=== PATIENT | female | born 1955 | race Caucasian/White ===

== ENCOUNTER 2017-02-01 04:08 | Inpatient (IN) | payer MEDICAID, OTHER ==
[~2017-02-01] VITALS: Ht 157.5 cm; Wt 119.3 kg
[2017-02-01] MEDS ORDERED: CLINDAMYCIN 900MG IV 50 ML IV ONE ×2 (05:00→10:00)
[2017-02-01] MEDS ORDERED: IPRATROPIUM BROM 0.5 MG/2.5ML INH SOL NEB ONE ×2 (05:00→10:00)
[2017-02-01] MEDS ORDERED: methylPREDNISolone SOD SUCC 125 MG/2 ML VL IV ONE ×2 (05:00→10:00)
[2017-02-01] MEDS ORDERED: ALBUTEROL SULF 2.5 MG/0.5ML(0.5%) NEB SOLN NEB ONE ×2 (05:00→10:00)
[2017-02-01 05:02] LABS: Basophils # (auto) 0 uL; Basophils % (auto) 0.3 % (0.0-2.0); Eosinophils # (auto) 0.3 uL; Eosinophils % (auto) 4.2 % (0.0-7.0); Hematocrit 42.1 % (36.0-46.0); Lymphocytes % (auto) 12.1 % (10.0-50.0); Mean Corpuscular Hemoglobin 29.7 pg (28.0-32.0); Mean Corpuscular Hgb Conc. 33.3 g/dL (32.0-36.0); Mean Corpuscular Volume 89.1 fL (80.0-100.0); Mean Platelet Volume 7.9 fL (7.4-10.4); Monocytes # (auto) 0.8 uL; Neutrophils # (auto) 6.1 uL; Neutrophils % (auto) 73.4 % (37.0-80.0); Platelet Count (auto) 314 10^3/uL (140-450); Red Cell Distribution Width 15.4 % (11.6-16.0); White Blood Cell 8.3 10^3/uL (4.4-10.8)
[2017-02-01 05:18] LABS: INR 0.96 (0.9-1.15); Partial Thromboplastin Time 27.6 sec (22.64-33.71); Prothrombin Time 10.4 sec (9.37-12.3)
[2017-02-01 05:22] LABS: Albumin 2.9 g/dL (3.4-5.0); BUN/Creatinine Ratio 11.7; Bilirubin, Total 0.7 mg/dL (0.2-1.0); Calcium 8.3 mg/dL (8.5-10.1); Potassium 3.6 mmol/L (3.5-5.1); Total Protein 8.3 g/dL (6.4-8.2)
[2017-02-01 05:27] LABS: B-Type Natriuretic Peptide 28.63 pg/mL (0-100); Magnesium 2.3 mg/dL (1.6-2.6)
[2017-02-01 05:28] LABS: Temperature: 22.1 C (20.0-25.0)
[2017-02-01] MEDS ORDERED: ONDANSETRON HCL 4 MG/2 ML VIAL IV PRN (07:15)
[2017-02-01] MEDS ORDERED: ACETAMINOPHEN 325 MG TAB PO PRN (07:15)
[2017-02-01] MEDS ORDERED: NITROGLYCERIN 0.4 MG SL TAB SL PRN (07:15)
[2017-02-01] MEDS ORDERED: TEMAZEPAM 15 MG CAP PO PRN (07:15)
[2017-02-01] MEDS ORDERED: MORPHINE SULF INJ 2 MG/ML SYRINGE 1ML IV PRN (07:15)
[2017-02-01] MEDS: SODIUM CHLORIDE 0.9% 1,000 ML IV SCH ×3 (08:48→23:55)
[2017-02-01] MEDS ORDERED: PIPERACILLIN-TAZOB 3.375GM 100 ML IV ONE (10:00)
[2017-02-01] MEDS ORDERED: ENOXAPARIN SOD 30 MG/0.3 ML SYRINGE SC SCH (10:00)
[2017-02-01] MEDS: ENOXAPARIN SOD 40 MG/0.4 ML SYRINGE SC SCH (10:30)
[2017-02-01] MEDS: FAMOTIDINE 20 MG TAB PO SCH ×2 (10:30→20:23)
[2017-02-01] MEDS: MULTIPLE VITAMIN TAB PO SCH (10:30)
[2017-02-01] MEDS: ASCORBIC ACID 500 MG TAB PO SCH ×2 (10:30→20:23)
[2017-02-01] MEDS: ZINC SULFATE 220 MG CAP PO SCH (10:30)
[2017-02-01] MEDS ORDERED: CLINDAMYCIN 900MG IV 50 ML IV SCH ×2 (13:00)
[2017-02-01 16:03] VITALS: BP 127/65
[2017-02-01 16:16] VITALS: BP 179/103
[2017-02-01] MEDS ORDERED: NOR5T PO (16:45)
[2017-02-01] MEDS: CLINDAMYCIN 900MG IV 50 ML IV SCH (17:20)
[2017-02-01 20:00] VITALS: BP 145/89
[2017-02-01] MEDS: MORPHINE SULF INJ 2 MG/ML SYRINGE 1ML IV PRN (21:49)
[2017-02-01 22:38] VITALS: BP 145/89
[2017-02-01] MEDS: ALBUTEROL SULF 2.5 MG/0.5ML(0.5%) NEB SOLN NEB SCH (23:06)
[2017-02-01] MEDS: IPRATROPIUM BROM 0.5 MG/2.5ML INH SOL NEB SCH (23:07)
[2017-02-02] MEDS: CLINDAMYCIN 900MG IV 50 ML IV SCH ×3 (03:33→17:31)
[2017-02-02 05:03] VITALS: BP 156/74
[2017-02-02 06:21] LABS: Basophils # (auto) 0 uL; Eosinophils # (auto) 0 uL; Hematocrit 39.6 % (36.0-46.0); Hemoglobin 13.3 g/dL (12.2-16.2); Lymphocytes # (auto) 0.8 uL; Lymphocytes % (auto) 6.8 % (10.0-50.0); Mean Corpuscular Hgb Conc. 33.6 g/dL (32.0-36.0); Mean Corpuscular Volume 89.5 fL (80.0-100.0); Mean Platelet Volume 8.4 fL (7.4-10.4); Monocytes # (auto) 0.7 uL; Monocytes % (auto) 6.3 % (0.0-12.0); Neutrophils # (auto) 9.9 uL; Neutrophils % (auto) 86.9 % (37.0-80.0); Platelet Count (auto) 318 10^3/uL (140-450); Red Cell Distribution Width 14.3 % (11.6-16.0); SUSPECT VIEW TRANSMISSION; White Blood Cell 11.4 10^3/uL (4.4-10.8)
[2017-02-02 06:42] LABS: Albumin 2.7 g/dL (3.4-5.0); Potassium 4.1 mmol/L (3.5-5.1)
[2017-02-02 06:44] LABS: BUN/Creatinine Ratio 13.9; Calcium 8.5 mg/dL (8.5-10.1)
[2017-02-02 06:47] LABS: Bilirubin, Total 0.3 mg/dL (0.2-1.0); Total Protein 7.6 g/dL (6.4-8.2)
[2017-02-02] MEDS: SODIUM CHLORIDE 0.9% 1,000 ML IV SCH ×2 (08:14→16:34)
[2017-02-02 09:30] VITALS: BP 113/51
[2017-02-02] MEDS: ALBUTEROL SULF 2.5 MG/0.5ML(0.5%) NEB SOLN NEB SCH ×2 (10:24→20:04)
[2017-02-02] MEDS: IPRATROPIUM BROM 0.5 MG/2.5ML INH SOL NEB SCH ×2 (10:24→20:04)
[2017-02-02] MEDS: ENOXAPARIN SOD 40 MG/0.4 ML SYRINGE SC SCH (10:35)
[2017-02-02] MEDS: ZINC SULFATE 220 MG CAP PO SCH (10:36)
[2017-02-02] MEDS: FAMOTIDINE 20 MG TAB PO SCH ×2 (10:36→20:46)
[2017-02-02] MEDS: ASCORBIC ACID 500 MG TAB PO SCH ×2 (10:36→20:46)
[2017-02-02] MEDS: MULTIPLE VITAMIN TAB PO SCH (10:36)
[2017-02-02] MEDS ORDERED: LORazepam 0.5 MG TAB PO PRN (12:30)
[2017-02-02 13:30] VITALS: BP 119/59
[2017-02-02] MEDS ORDERED: IPRATROPIUM BROM 0.5 MG/2.5ML INH SOL NEB ONE (13:30)
[2017-02-02] MEDS ORDERED: ALBUTEROL SULF 2.5 MG/0.5ML(0.5%) NEB SOLN NEB ONE (13:30)
[2017-02-02] MEDS: BOOST PLUS 8 ounce PO SCH ×2 (18:00→20:48)
[2017-02-02 18:10] VITALS: BP 117/57
[2017-02-02 20:00] VITALS: BP 121/72
[2017-02-02] MEDS: MORPHINE SULF INJ 2 MG/ML SYRINGE 1ML IV PRN (20:47)
[2017-02-02 21:40] VITALS: BP 121/72
[2017-02-03] MEDS: CLINDAMYCIN 900MG IV 50 ML IV SCH ×3 (01:41→17:32)
[2017-02-03] MEDS: SODIUM CHLORIDE 0.9% 1,000 ML IV SCH ×3 (01:42→17:34)
[2017-02-03 05:26] VITALS: BP 149/90
[2017-02-03] MEDS: ALBUTEROL SULF 2.5 MG/0.5ML(0.5%) NEB SOLN NEB SCH ×5 (05:58→22:00)
[2017-02-03] MEDS: BOOST PLUS 8 ounce PO SCH ×4 (06:00→20:22)
[2017-02-03 06:14] LABS: Basophils # (auto) 0 uL; Basophils % (auto) 0.2 % (0.0-2.0); Eosinophils # (auto) 0.1 uL; Eosinophils % (auto) 1.3 % (0.0-7.0); Hematocrit 39.3 % (36.0-46.0); Hemoglobin 13.2 g/dL (12.2-16.2); Lymphocytes # (auto) 1.2 uL; Lymphocytes % (auto) 12.4 % (10.0-50.0); Mean Corpuscular Hemoglobin 30.4 pg (28.0-32.0); Mean Corpuscular Hgb Conc. 33.5 g/dL (32.0-36.0); Mean Corpuscular Volume 90.8 fL (80.0-100.0); Mean Platelet Volume 8.1 fL (7.4-10.4); Monocytes # (auto) 0.8 uL; Monocytes % (auto) 8.4 % (0.0-12.0); Neutrophils # (auto) 7.3 uL; Neutrophils % (auto) 77.7 % (37.0-80.0); Platelet Count (auto) 337 10^3/uL (140-450); Red Cell Distribution Width 15.3 % (11.6-16.0); White Blood Cell 9.4 10^3/uL (4.4-10.8)
[2017-02-03 06:38] LABS: Albumin 2.7 g/dL (3.4-5.0); BUN/Creatinine Ratio 20.5; Bilirubin, Total 0.4 mg/dL (0.2-1.0); Calcium 8.6 mg/dL (8.5-10.1); Total Protein 7.7 g/dL (6.4-8.2)
[2017-02-03 09:00] VITALS: BP 123/66
[2017-02-03] MEDS: ZINC SULFATE 220 MG CAP PO SCH (10:55)
[2017-02-03] MEDS: ASCORBIC ACID 500 MG TAB PO SCH ×2 (10:55→20:22)
[2017-02-03] MEDS: MULTIPLE VITAMIN TAB PO SCH (10:55)
[2017-02-03] MEDS: FAMOTIDINE 20 MG TAB PO SCH ×2 (10:55→20:22)
[2017-02-03] MEDS: ENOXAPARIN SOD 40 MG/0.4 ML SYRINGE SC SCH (10:56)
[2017-02-03] MEDS: IPRATROPIUM BROM 0.5 MG/2.5ML INH SOL NEB SCH ×3 (12:02→22:00)
[2017-02-03 13:00] VITALS: BP 132/74
[2017-02-03] MEDS ORDERED: LEVOFLOXACIN 500MG 100 ML IV ONE (14:45)
[2017-02-03 18:23] VITALS: BP 117/72
[2017-02-03 20:00] VITALS: BP 126/77
[2017-02-03 22:00] VITALS: BP 118/69
[2017-02-04] VITALS (7 sets, daily range): BP systolic 115–126; BP diastolic 53–89
[2017-02-04] MEDS: IPRATROPIUM BROM 0.5 MG/2.5ML INH SOL NEB SCH ×6 (00:44→22:00)
[2017-02-04] MEDS: ALBUTEROL SULF 2.5 MG/0.5ML(0.5%) NEB SOLN NEB SCH ×6 (00:44→22:00)
[2017-02-04] MEDS: SODIUM CHLORIDE 0.9% 1,000 ML IV SCH ×2 (00:56→10:14)
[2017-02-04] MEDS: CLINDAMYCIN 900MG IV 50 ML IV SCH ×3 (00:56→17:03)
[2017-02-04] MEDS: BOOST PLUS 8 ounce PO SCH ×4 (06:00→22:00)
[2017-02-04 06:09] LABS: Basophils # (auto) 0 uL; Basophils % (auto) 0.3 % (0.0-2.0); Eosinophils # (auto) 0.2 uL; Eosinophils % (auto) 3.1 % (0.0-7.0); Hematocrit 40.2 % (36.0-46.0); Hemoglobin 13.7 g/dL (12.2-16.2); Lymphocytes # (auto) 1.2 uL; Lymphocytes % (auto) 16.1 % (10.0-50.0); Mean Corpuscular Hemoglobin 30.4 pg (28.0-32.0); Mean Corpuscular Hgb Conc. 34.1 g/dL (32.0-36.0); Mean Corpuscular Volume 89.2 fL (80.0-100.0); Mean Platelet Volume 7.8 fL (7.4-10.4); Monocytes # (auto) 0.7 uL; Monocytes % (auto) 10.1 % (0.0-12.0); Neutrophils # (auto) 5.2 uL; Neutrophils % (auto) 70.4 % (37.0-80.0); Platelet Count (auto) 332 10^3/uL (140-450); Red Cell Distribution Width 15.4 % (11.6-16.0); White Blood Cell 7.4 10^3/uL (4.4-10.8)
[2017-02-04 06:30] LABS: Albumin 2.6 g/dL (3.4-5.0); BUN/Creatinine Ratio 18.1; Calcium 8.3 mg/dL (8.5-10.1); Potassium 4.9 mmol/L (3.5-5.1)
[2017-02-04 06:32] LABS: Bilirubin, Total 0.4 mg/dL (0.2-1.0); Total Protein 7.6 g/dL (6.4-8.2)
[2017-02-04] MEDS ORDERED: LEVOFLOXACIN 500MG 100 ML IV SCH (10:00)
[2017-02-04] MEDS: ZINC SULFATE 220 MG CAP PO SCH (10:18)
[2017-02-04] MEDS: MULTIPLE VITAMIN TAB PO SCH (10:18)
[2017-02-04] MEDS: FAMOTIDINE 20 MG TAB PO SCH ×2 (10:18→21:39)
[2017-02-04] MEDS: ASCORBIC ACID 500 MG TAB PO SCH ×2 (10:18→21:38)
[2017-02-04] MEDS: ENOXAPARIN SOD 40 MG/0.4 ML SYRINGE SC SCH (10:18)
[2017-02-04] MEDS ORDERED: diphenhdrAMINE HCL 25 MG CAP PO ONE ×2 (13:40→13:45)
[2017-02-04 15:24] LABS: Allen Test Yes; Base Excess 4.4 mmol/L (-2.0-2.0); Blood 02Sat 82.7 % (96-100); Blood COHb 0.9 % (0.5-1.5); Blood MetHb 0.3 % (0.0-1.5); HCO3 29.6 mmol/L (22-26.0); HHb 17.1 % (0.0-5.0); MODE ROOM AIR; O2Hb 81.7 % (94.0-97.0); PCO2(T) 46.4 mmHg (35.0-45.0); PO2(T) 48.3 mmHg (80.0-100.0); Sample Type Arterial
[2017-02-04] MEDS ORDERED: IOHEXOL 350 MG/ML 100ML IJ ONE (16:11)
[2017-02-04] MEDS: ENOXAPARIN SOD 120 MG/0.8 ML SYRINGE SC SCH (21:38)
[2017-02-04] MEDS ORDERED: WARFARIN SODIUM 2.5 MG TAB PO ONE (21:45)
[2017-02-05] MEDS: CLINDAMYCIN 900MG IV 50 ML IV SCH ×2 (00:45→09:18)
[2017-02-05] MEDS: IPRATROPIUM BROM 0.5 MG/2.5ML INH SOL NEB SCH ×4 (01:54→14:30)
[2017-02-05] MEDS: ALBUTEROL SULF 2.5 MG/0.5ML(0.5%) NEB SOLN NEB SCH ×4 (01:54→14:30)
[2017-02-05 05:00] VITALS: BP 159/87
[2017-02-05] MEDS: BOOST PLUS 8 ounce PO SCH (06:00)
[2017-02-05 06:35] LABS: Basophils # (auto) 0 uL; Basophils % (auto) 0.4 % (0.0-2.0); Eosinophils # (auto) 0.3 uL; Eosinophils % (auto) 4.9 % (0.0-7.0); Hematocrit 40.8 % (36.0-46.0); Hemoglobin 13.6 g/dL (12.2-16.2); Lymphocytes # (auto) 1.1 uL; Mean Corpuscular Hemoglobin 30.3 pg (28.0-32.0); Mean Corpuscular Hgb Conc. 33.4 g/dL (32.0-36.0); Mean Corpuscular Volume 90.8 fL (80.0-100.0); Mean Platelet Volume 7.9 fL (7.4-10.4); Monocytes # (auto) 0.6 uL; Monocytes % (auto) 9.3 % (0.0-12.0); Neutrophils # (auto) 4.4 uL; Neutrophils % (auto) 68.4 % (37.0-80.0); Platelet Count (auto) 336 10^3/uL (140-450); Red Cell Distribution Width 15.3 % (11.6-16.0); White Blood Cell 6.5 10^3/uL (4.4-10.8)
[2017-02-05 06:43] LABS: INR 0.99 (0.9-1.15); Prothrombin Time 10.7 sec (9.37-12.3)
[2017-02-05] MEDS ORDERED: SODIUM CHLORIDE 0.9% 1,000 ML IV SCH (07:14)
[2017-02-05] MEDS: MULTIPLE VITAMIN TAB PO SCH (09:18)
[2017-02-05] MEDS: ASCORBIC ACID 500 MG TAB PO SCH (09:18)
[2017-02-05] MEDS: FAMOTIDINE 20 MG TAB PO SCH (09:18)
[2017-02-05] MEDS: ZINC SULFATE 220 MG CAP PO SCH (09:18)
[2017-02-05] MEDS: ENOXAPARIN SOD 120 MG/0.8 ML SYRINGE SC SCH (09:20)
[2017-02-05 10:11] VITALS: BP 115/59
[2017-02-05] MEDS ORDERED: BOOST PLUS 8 ounce PO SCH (12:00)
[2017-02-05 13:00] VITALS: BP 106/58
[2017-02-05] MEDS ORDERED: CLIN1CAP4 PO (13:03)
[2017-02-05] MEDS ORDERED: SACC250C PO (13:03)
[2017-02-05] MEDS ORDERED: predniSONE 20 MG TAB PO ONE (13:15)
[2017-02-05 15:35] VITALS: BP 106/58
[2017-02-05] MEDS ORDERED: WARFARIN SODIUM 10 MG TAB PO ONE (17:00)
[2017-02-06] MEDS ORDERED: predniSONE 20 MG TAB PO SCH (10:00)
== END 2017-02-05 05:50 | disposition home health service (06) | DRG 383 ==
LOC: ER 04:08 → TELE 04:09 → TELE-E-ADS 13:42 → TELE-WESTW 17:22
PROVIDERS: ADMIT Emergency Medicine; ATTEND Internal Medicine
DX: L03.115 Cellulitis of right lower limb (principal); J96.01 Acute respiratory failure with hypoxia; E43 Unspecified severe protein-calorie malnutrition; J44.1 Chronic obstructive pulmonary disease with (acute) exacerbation; J45.901 Unspecified asthma with (acute) exacerbation; L97.919 Non-pressure chronic ulcer of unspecified part of right lower leg with unspecified severity; Z68.42 Body mass index [BMI] 45.0-49.9, adult; J40 Bronchitis, not specified as acute or chronic; I87.2 Venous insufficiency (chronic) (peripheral); N18.2 Chronic kidney disease, stage 2 (mild); E66.9 Obesity, unspecified; Z87.891 Personal history of nicotine dependence; Z88.5 Allergy status to narcotic agent; Z88.0 Allergy status to penicillin; Z88.2 Allergy status to sulfonamides
CPT/HCPCS: 36415; 36600; 71010; 71275; 78582; 80053; 82805; 83735; 83880; 84484; 85025; 85379; 85610; 85730; 86141; 87040; 93005; 93306; 93971; 94640; 94761; 96365; 96375; J1956; J3490